=== PATIENT | male | born 1970 | race Caucasian/White ===

== ENCOUNTER 2016-12-25 09:13 | Observation (INO) | payer OTHER ==
[~2016-12-25] VITALS: Ht 172.7 cm; Wt 99.0 kg
[2016-12-25] VITALS (10 sets, daily range): BP systolic 98–120; BP diastolic 51–88; PULSE 80–117; RESP 18–20; TEMP 98–99.2; O2SAT 94–98
[~2016-12-25 09:13] MED LIST: HYDR-3580 PO
[2016-12-25] MEDS ORDERED: LORazepam 2 MG/ML VIAL IV PUSH ONE (09:30)
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
[2016-12-25] MEDS ORDERED: SODIUM CHLOR 0.9% 1000 ML INJ 1,000 ML IV ONE (09:45)
[2016-12-25 09:46] LABS: AUTOMATED NEUTROPHIL # 5.1 TH/MM3 (1.8-7.7); BASOPHIL # 0.1 TH/MM3 (0-0.2); BASOPHIL % 0.7 % (0.0-2.0); EOSINOPHIL # 0.1 TH/MM3 (0-0.4); EOSINOPHIL % 0.7 % (0.0-4.0); HEMATOCRIT 41.4 % (39.0-51.0); HEMO FLAGS DIFF FINAL; LYMPHOCYTE # 1.7 TH/MM3 (1.0-4.8); MEAN CELL VOLUME 88.8 FL (80.0-100.0); MEAN CORPUSCULAR HGB CONC 33.8 % (32.0-36.0); MONO % 4.9 % (0.0-8.0); NEUT % 70.7 % (16.0-70.0); PLATELET COUNT 167 TH/MM3 (150-450); RED BLOOD COUNT 4.66 MIL/MM3 (4.50-5.90); RED CELL DISTRIBUTION WIDTH 13.6 % (11.6-17.2); WHITE BLOOD COUNT 7.2 TH/MM3 (4.0-11.0)
[2016-12-25 10:15] LABS: AMPHETAMINE, URINE NEG (NEG); BARBITURATES, URINE NEG (NEG); COCAINE, URINE POS (NEG)
--- NOTE | 2016-12-25 10:18 | RADRPT ---
EXAM DATE/TIME: 12/25/2016 09:52 [facility] COMPARISON: CT BRAIN W/O CONTRAST, October 09, 2012, 11:24. INDICATIONS : Altered mental status RADIATION DOSE: 56.35 CTDIvol (mGy) MEDICAL HISTORY : None SURGICAL HISTORY : None. ENCOUNTER: Initial ACUITY: 1 day PAIN SCALE: Non-responsive LOCATION: Bilateral head TECHNIQUE: Multiple contiguous axial images were obtained of the head. Using automated exposure control and adj ustment of the mA and/or kV according to patient size, radiation dose was kept as low as reasonably a chievable to obtain optimal diagnostic quality images. FINDINGS: CEREBRUM: The ventricles are normal for age. No evidence of midline shift, mass lesion, hemorrhage or acute in farction. No extra-axial fluid collections are seen. POSTERIOR FOSSA: The cerebellum and brainstem are intact. The 4th ventricle is midline. The cerebellopontine angle i s unremarkable. EXTRACRANIAL: The visualized portion of the orbits is intact. SKULL: The calvaria is intact. No evidence of skull fracture. CONCLUSION: No acute intracranial disease. Cesar Velez MD on December 25, 2016 at 10:16 Board Certified Radiologist. This report was verified electronically.
[2016-12-25 10:20] LABS: ALKALINE PHOSPHATASE 61 U/L (45-117); ALT (GPT) 26 U/L (12-78); ANION GAP 12 MEQ/L (5-15); AST (GOT) 22 U/L (15-37); BICARBONATE 23.1 MEQ/L (21.0-32.0); BLOOD UREA NITROGEN 8 MG/DL (7-18); CHLORIDE 105 MEQ/L (98-107); GLOMERULAR FILTRATION RATE 59 ML/MIN (>89); POTASSIUM 3.5 MEQ/L (3.5-5.1); SODIUM (NA) 140 MEQ/L (136-145); TOTAL BILIRUBIN ADULT 0.5 MG/DL (0.2-1.0)
[2016-12-25] MEDS ORDERED: SODIUM CHLORIDE 0.9% FLUSH 5 ML FLUSH FLUSH PRN (12:45)
[2016-12-25] MEDS ORDERED: SENNOSIDES 8.6 MG TAB PO PRN (13:00)
[2016-12-25] MEDS ORDERED: MAGNESIUM HYDROXIDE SUSP 30 ML CUP PO PRN (13:00)
[2016-12-25] MEDS ORDERED: ACETAMINOPHEN 325 MG TAB PO PRN (13:00)
[2016-12-25] MEDS ORDERED: BISACODYL 10 MG SUPP PR PRN (13:00)
[2016-12-25] MEDS ORDERED: ONDANSETRON HCL 4 MG/2 ML VIAL IVP PRN (13:00)
[2016-12-25] MEDS: SODIUM CHLOR 0.9% 1000 ML INJ 1,000 ML IV SCH ×2 (13:26→22:35)
[2016-12-25] MEDS ORDERED: PROCHLORPERAZINE 25 MG SUPP PR PRN (14:00)
[2016-12-25] MEDS ORDERED: ENOXAPARIN SODIUM 40 MG/0.4 ML SYRINGE SQ SCH (14:00)
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
[2016-12-25] MEDS: SODIUM CHLORIDE 0.9% FLUSH 5 ML FLUSH FLUSH SCH (21:00)
[2016-12-26 03:11] VITALS: BP 108/70; PULSE 76; RESP 18; TEMP 97.9; O2SAT 94
--- NOTE | 2016-12-26 07:16 | HHI.PR ---
Subjective Remarks In bed, awake and alert, back to baseline. Tolerates food. Satting well on room air. No sob, cp, n/v/d/c. Objective Vitals Vital Signs Date Time Temp Pulse Resp B/P Pulse Ox O2 Delivery O2 Flow Rate FiO2 12/26/16 03:11 97.9 76 18 108/70 94 12/25/16 23:13 99.2 80 18 112/66 94 12/25/16 21:02 90 12/25/16 19:40 99.1 92 18 98/51 94 12/25/16 16:00 120/72 12/25/16 14:58 95 12/25/16 14:29 98 21 12/25/16 13:57 98.1 95 20 119/88 95 12/25/16 11:07 98.6 87 18 116/75 Room Air 96 12/25/16 09:23 117 20 97 Room Air 12/25/16 09:23 98.6 115 20 108/65 Room Air 97 12/25/16 09:16 98.0 117 20 108/65 97 Result Diagram: 12/25/1625 12/25/16 0925 Imaging Last Impressions Head CT 12/25/16 0000 Signed Impressions: Service Date/Time: Sunday, December 25, 2016 09:52 - CONCLUSION: No acute intracranial disease. Cesar Velez MD Objective Remarks GENERAL: This is a well-nourished, well-developed patient, appears in nad. SKIN: No rashes, ecchymoses or lesions. Cool and dry. HEAD: Atraumatic. Normocephalic. No temporal or scalp tenderness. EYES: Pupils equal round and reactive. Extraocular motions intact. No scleral icterus. No injection or drainage. ENT: Nose without bleeding, purulent drainage or septal hematoma. Throat without erythema, tonsillar hypertrophy or exudate. Uvula midline. Airway patent. NECK: Trachea midline. No JVD or lymphadenopathy. Supple, nontender, no meningeal signs. CARDIOVASCULAR: Regular rate and rhythm without murmurs, gallops, or rubs. RESPIRATORY: Clear to auscultation. Breath sounds equal bilaterally. No wheezes , rales, or rhonchi. GASTROINTESTINAL: Abdomen soft, non-tender, nondistended. No hepato-splenomegaly , or palpable masses. No guarding. MUSCULOSKELETAL: Extremities without clubbing, cyanosis, or edema. No joint tenderness, effusion, or edema noted. No calf tenderness. Negative Homans sign bilaterally. NEUROLOGICAL: Awake and alert. Cranial nerves II through XII intact. Motor and sensory grossly within normal limits. Five out of 5 muscle strength in all muscle groups. Normal speech. A/P Assessment and Plan Carboxyhemoglobinemia, undetermined intent Acute toxic encephalopathy Delirium Polysubstance abuse Carboxyhemoglobin level was slightly elevated than normal. Patient was put on nonrebreather mask, will recheck level later. Head CT scan reviewed, findings discussed with Dr Duggan ED is within normal limits. Mild dehydration. Received 1 liter of fluid bolus in the ED. Received IVF, repeat kidney indices back to normal. Adviced PO hydration EKG reviewed and discussed with Dr Duggan ED. Normal sinus rhythm, normal axis, tachycardia, nonspecific ST-T wave changes. Heart rate of 108 bpm. Repeat caroxyHGB normal level. Monitor vital signs Consult psychiatry Stable medically. Cleared medically for DC. Seen by Dr Silver, cleared patient for DC DVT ppx lovenox Discussed Condition With patient, nurse Discharge Planning DC home in stable condition To follow up as OP with PCP and consultants Meds per med reconciliations Diet regular as tolerated Activity ad colt Laura Hyatt MD Dec 26, 2016 07:16
[2016-12-26 07:25] LABS: AUTOMATED NEUTROPHIL # 3.8 TH/MM3 (1.8-7.7); BASOPHIL % 0.7 % (0.0-2.0); EOSINOPHIL # 0.1 TH/MM3 (0-0.4); EOSINOPHIL % 1.8 % (0.0-4.0); HEMATOCRIT 40.2 % (39.0-51.0); HEMO FLAGS DIFF FINAL; LYMPH % 34.3 % (9.0-44.0); LYMPHOCYTE # 2.3 TH/MM3 (1.0-4.8); MEAN CELL VOLUME 88.9 FL (80.0-100.0); MEAN CORPUSCULAR HEMOGLOBIN 29.8 PG (27.0-34.0); MEAN CORPUSCULAR HGB CONC 33.5 % (32.0-36.0); MONO % 6.2 % (0.0-8.0); PLATELET COUNT 152 TH/MM3 (150-450); RED BLOOD COUNT 4.53 MIL/MM3 (4.50-5.90); RED CELL DISTRIBUTION WIDTH 13.9 % (11.6-17.2); WHITE BLOOD COUNT 6.7 TH/MM3 (4.0-11.0)
[2016-12-26 07:30] VITALS: BP 97/67; PULSE 52; RESP 18; TEMP 97.3; O2SAT 96
[2016-12-26 07:42] LABS: BICARBONATE 25.1 MEQ/L (21.0-32.0)
[2016-12-26] MEDS: SODIUM CHLOR 0.9% 1000 ML INJ 1,000 ML IV SCH (08:35)
[2016-12-26] MEDS: SODIUM CHLORIDE 0.9% FLUSH 5 ML FLUSH FLUSH SCH (08:46)
[2016-12-26 10:05] VITALS: PULSE 72
[2016-12-26 11:28] VITALS: BP 114/63; PULSE 88; RESP 20; TEMP 98.6; O2SAT 95
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
[2016-12-26 15:54] VITALS: BP 117/68; PULSE 74; RESP 18; TEMP 98.7; O2SAT 95
--- NOTE | 2017-01-01 14:58 | EKG ---
Date Performed: 12/25/2016 Time Performed: 09:30:41 PTAGE: 46 years EKG: SINUS TACHYCARDIA ABNORMAL RHYTHM ECG Compared to prior tracing no significant change PREVIOUS TRACING : 10/09/2012 10.53 DOCTOR: Luther House Interpretating Date/Time 01/01/2017 14:57:01
== END 2016-12-26 17:30 | disposition home or self-care (01) ==
LOC: NEPA 09:13 → NEDA 12:09 → NEPHCDU 13:40
PROVIDERS: ADMIT Hospitalist; ATTEND Hospitalist
DX: T58.94XA Toxic effect of carbon monoxide from unspecified source, undetermined, initial encounter (principal); R41.0 Disorientation, unspecified; R00.0 Tachycardia, unspecified; F31.9 Bipolar disorder, unspecified; F20.9 Schizophrenia, unspecified; R56.9 Unspecified convulsions; F17.210 Nicotine dependence, cigarettes, uncomplicated; E86.0 Dehydration; F14.90 Cocaine use, unspecified, uncomplicated; G92 Toxic encephalopathy; F19.20 Other psychoactive substance dependence, uncomplicated; F90.9 Attention-deficit hyperactivity disorder, unspecified type
CPT/HCPCS: 70450; 80048; 80053; 80307; 80320; 82375; 85025; 93005; 96360; 99291; G0378; J1650; J2405; J7030

== ENCOUNTER 2017-02-18 19:21 | Emergency (ER) | payer OTHER ==
[2017-02-18 19:22] VITALS: BP 144/80; PULSE 90; RESP 16; TEMP 97.8; O2SAT 97
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
== END 2017-02-18 20:46 | disposition home or self-care (01) ==
LOC: NEPD 19:21
DX: S61.412A Laceration without foreign body of left hand, initial encounter (principal); W26.0XXA Contact with knife, initial encounter
CPT/HCPCS: 99282

== ENCOUNTER 2017-03-01 01:45 | Emergency (ER) | payer OTHER ==
[~2017-03-01] VITALS: Ht 172.7 cm; Wt 86.5 kg
[2017-03-01 01:47] VITALS: BP 115/81; PULSE 109; RESP 20; TEMP 97.8; O2SAT 96
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
[2017-03-01 03:55] LABS: AUTOMATED NEUTROPHIL # 5.9 TH/MM3 (1.8-7.7); BASOPHIL % 0.5 % (0.0-2.0); EOSINOPHIL % 0.5 % (0.0-4.0); HEMO FLAGS DIFF FINAL; LYMPH % 19.3 % (9.0-44.0); LYMPHOCYTE # 1.5 TH/MM3 (1.0-4.8); MEAN CORPUSCULAR HEMOGLOBIN 30.3 PG (27.0-34.0); MEAN CORPUSCULAR HGB CONC 34.8 % (32.0-36.0); MONO % 4.4 % (0.0-8.0); NEUT % 75.3 % (16.0-70.0); PLATELET COUNT 174 TH/MM3 (150-450); RED BLOOD COUNT 4.71 MIL/MM3 (4.50-5.90); RED CELL DISTRIBUTION WIDTH 14.1 % (11.6-17.2); WHITE BLOOD COUNT 7.9 TH/MM3 (4.0-11.0)
[2017-03-01 04:14] LABS: ACETAMINOPHEN LESS THAN 2.0 MCG/ML (10.0-30.0); ALT (GPT) 20 U/L (12-78); ANION GAP 8 MEQ/L (5-15); AST (GOT) 14 U/L (15-37); BICARBONATE 25.7 MEQ/L (21.0-32.0); BLOOD UREA NITROGEN 10 MG/DL (7-18); CHLORIDE 106 MEQ/L (98-107); GLOMERULAR FILTRATION RATE 64 ML/MIN (>89); POTASSIUM 3.5 MEQ/L (3.5-5.1); SODIUM (NA) 140 MEQ/L (136-145)
[2017-03-01 04:16] LABS: ALKALINE PHOSPHATASE 63 U/L (45-117); TOTAL BILIRUBIN ADULT 0.5 MG/DL (0.2-1.0)
[2017-03-01 06:35] VITALS: BP 109/67
== END 2017-03-01 06:49 | disposition home or self-care (01) ==
LOC: NEPC 01:45
DX: F19.10 Other psychoactive substance abuse, uncomplicated (principal); Z72.0 Tobacco use
CPT/HCPCS: 80053; 80307; 85025; 99284

== ENCOUNTER 2018-02-26 05:30 | Emergency (ER) | payer OTHER, MEDICAID ==
[~2018-02-26] VITALS: Ht 170.2 cm; Wt 82.0 kg
[2018-02-26 05:45] VITALS: BP 150/81; PULSE 97; RESP 22; O2SAT 98
[2018-02-26] MEDS ORDERED: SODIUM CHLOR 0.9% 1000 ML INJ 1,000 ML IV SCH (05:53)
[2018-02-26] MEDS ORDERED: MORPHINE SULFATE 4 MG/ML INJ IV PUSH ONE ×2 (06:00→09:00)
[2018-02-26] MEDS ORDERED: ceFAZolin 2 GM PREMIX 50 ML ONE (06:00)
[2018-02-26] MEDS ORDERED: ONDANSETRON HCL 4 MG/2 ML VIAL IV PUSH ONE (06:00)
[2018-02-26] MEDS ORDERED: ceFAZolin 2 GM PREMIX 100 ML IV ONE (06:00)
[2018-02-26] MEDS ORDERED: DIPHTH/TETANUS/ACEL PERTUSSIS (BOOSTER) 0.5 ML VIAL/PFS IM ONE (06:00)
[2018-02-26] MEDS ORDERED: SODIUM CHLORIDE 0.9% FLUSH 10 ML FLUSH IVF PRN (06:00)
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
[2018-02-26 06:44] LABS: AUTOMATED NEUTROPHIL # 6.5 TH/MM3 (1.8-7.7); BASOPHIL % 0.3 % (0.0-2.0); EOSINOPHIL # 0.1 TH/MM3 (0-0.4); EOSINOPHIL % 0.8 % (0.0-4.0); HEMATOCRIT 45.9 % (39.0-51.0); HEMOGLOBIN 15.8 GM/DL (13.0-17.0); LYMPH % 27.5 % (9.0-44.0); LYMPHOCYTE # 2.7 TH/MM3 (1.0-4.8); MEAN CELL VOLUME 87.3 FL (80.0-100.0); MEAN CORPUSCULAR HEMOGLOBIN 30.1 PG (27.0-34.0); MEAN CORPUSCULAR HGB CONC 34.5 % (32.0-36.0); MEAN PLATELET VOLUME 8.9 FL (7.0-11.0); MONO % 5.7 % (0.0-8.0); MONOCYTE # 0.6 TH/MM3 (0-0.9); NEUT % 65.7 % (16.0-70.0); PLATELET COUNT 237 TH/MM3 (150-450); RED BLOOD COUNT 5.25 MIL/MM3 (4.50-5.90); RED CELL DISTRIBUTION WIDTH 13.3 % (11.6-17.2); WHITE BLOOD COUNT 9.9 TH/MM3 (4.0-11.0)
[2018-02-26 06:52] LABS: PROTHROMBIN TIME - PATIENT 10.1 SEC (9.8-11.6)
[2018-02-26 06:58] LABS: BICARBONATE 25.7 MEQ/L (21.0-32.0); BLOOD UREA NITROGEN 9 MG/DL (7-18); CHLORIDE 104 MEQ/L (98-107); CREATININE 1.05 MG/DL (0.60-1.30); GLOMERULAR FILTRATION RATE 76 ML/MIN (>89); GLUCOSE,RANDOM 99 MG/DL (74-106); SODIUM (NA) 138 MEQ/L (136-145)
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
[2018-02-26 07:10] VITALS: BP 153/91; PULSE 82; RESP 18; O2SAT 99
[2018-02-26] MEDS ORDERED: MORPHINE SULFATE 2 MG/ML SYRINGE IV PUSH ONE (07:15)
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
[2018-02-26] MEDS ORDERED: LIDOCAINE 1%/EPINEPHrine 1:100,000 SOLN 20 ML VIAL INFIL ONE (08:30)
[2018-02-26] MEDS ORDERED: CEPH-460 PO (09:42)
[2018-02-26] MEDS ORDERED: IBUP-232 PO (09:42)
== END 2018-02-26 10:15 | disposition home or self-care (01) ==
LOC: NEPC 05:30
DX: S91.011A Laceration without foreign body, right ankle, initial encounter (principal); V03.90XA Pedestrian on foot injured in collision with car, pick-up truck or van, unspecified whether traffic or nontraffic accident, initial encounter; Z23 Encounter for immunization
CPT/HCPCS: 12005; 70450; 72170; 73590; 73600; 73610; 73620; 80048; 80307; 85025; 85610; 85730; 90471; 90715; 96361; 96365; 96375; 96376; 99285; J0690; J2270; J2405; J7030

== ENCOUNTER 2018-03-23 07:23 | Emergency (ER) | payer OTHER, MEDICAID ==
[~2018-03-23 07:23] MED LIST changes: +CEPH-460 PO; -HYDR-3580 PO; +IBUP-232 PO
[2018-03-23 07:26] VITALS: BP 131/76; PULSE 103; RESP 14; TEMP 98; O2SAT 96
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
[2018-03-23] MEDS ORDERED: KETOROLAC TROMETHAMINE 60 MG/2 ML (IM) VIAL IM ONE (08:00)
[2018-03-23] MEDS ORDERED: CLINDAMYCIN 150 MG CAP PO ONE (08:00)
[2018-03-23] MEDS ORDERED: CLIN150C14 PO (08:09)
[2018-03-23 08:11] VITALS: BP 124/84; PULSE 84; RESP 16; O2SAT 97
== END 2018-03-23 08:48 | disposition home or self-care (01) ==
LOC: NEPC 07:23
DX: T81.4XXA Infection following a procedure, initial encounter (principal); Z48.02 Encounter for removal of sutures
CPT/HCPCS: 96372; 99281; J1885